=== PATIENT | female | born 1975 | race Caucasian/White ===

== ENCOUNTER 2022-04-08 07:56 | Day surgery (SDC) | payer OTHER ==
[~2022-04-08] VITALS: Ht 160 cm; Wt 67.2 kg
[2022-04-08] MEDS ORDERED: PRILOSEC 20MG20 MG PO (08:15)
[2022-04-08 08:16] VITALS: BP 129/78; PULSE 76; TEMP 97.4
[2022-04-08 09:30] VITALS: BP 128/69; PULSE 84
--- NOTE | 2022-04-08 09:30 | NUR ---
PATIENT RETURNS TO BAY 2 PER CART AND ASSISTED FROM CART TO RECLINER WITH ONE PERSON ASSIST. SPOUSE IN ROOM. CALL LIGHT IN REACH. ALLOWED TO REST. IV FLUIDS INFUSING.
[2022-04-08 09:45] VITALS: BP 128/74; PULSE 79
--- NOTE | 2022-04-08 09:45 | NUR ---
CONTINUES TO REST WITH EYES CLOSED. SPOUSE AT SIDE. CALL LIGHT IN REACH.
[2022-04-08 10:00] VITALS: BP 129/78; PULSE 75
--- NOTE | 2022-04-08 10:00 | NUR ---
DR. WAGONER IN THE ROOM AND TALKS WITH PATIENT. ALL QUESTIONS ANSWERED. EATING SNACK AND DRINKING JUICE.
--- NOTE | 2022-04-08 10:14 | NUR ---
IV DISCONTINUED AND PATIENT DRESSES SELF.
--- NOTE | 2022-04-08 10:18 | NUR ---
DISMISSAL INSTRUCTIONS GIVEN AND VOICES UNDERSTANDING OF THESE. PATIENT DRESSED AND READY FOR DISCHARGE.
--- NOTE | 2022-04-08 10:21 | NUR ---
PATIENT DISCHARGED TO HOME PER PRIVATE VEHICLE WITH INSTRUCTIONS IN HAND AND ASSISTED INTO VEHICLE DRIVEN BY SPOUSE.
== END 2022-04-08 10:21 | disposition home or self-care (01) ==
LOC: SDCO 07:56
DX: K29.50 Unspecified chronic gastritis without bleeding (principal); K22.4 Dyskinesia of esophagus; E11.9 Type 2 diabetes mellitus without complications
CPT/HCPCS: J2704; J7120